=== PATIENT | female | born 1960 | race Caucasian/White ===

== ENCOUNTER 2017-06-17 16:16 | Emergency (ER) | payer MEDICAID ==
[~2017-06-17] VITALS: Wt 56.0 kg
--- NOTE | 2017-06-17 17:45 | RADRPT ---
PROCEDURE: Ultrasound abdomen limited CLINICAL INDICATION: 57-year-old female Trauma, evaluate for free fluid. TECHNIQUE: A limited ultrasound of the abdomen was performed utilizing amador scale imaging. COMPARISON: None. FINDINGS: No free fluid is identified in all four abdominal quadrants. IMPRESSION: Negative for evidence of intra-abdominal free fluid. RPTAT: HCTS Physician Estuardo Date Time Electronically viewed and signed by Erica Herrera Physician on 06/17/2017 17:45 CS/
--- NOTE | 2017-06-17 17:55 | RADRPT ---
PROCEDURE: Portable chest x-ray. CLINICAL INDICATION: 57-year-old female trauma. Chest pain. TECHNIQUE: Portable AP view of the chest. COMPARISON: None FINDINGS: Aortic contour is normal. Cardiomediastinal contours are normal. Mild right lung base atelectasis. Otherwise clear. Small right pleural effusion. Negative for evidence of pneumothorax. There are acute mildly displaced fractures of the lateral left third and fourth ribs with a subpleur al hematoma. There is mild widening of the left paravertebral stripe at T10 may indicate a paravert ebral hematoma. The negative for height loss in the adjacent vertebra. IMPRESSION: Acute mildly displaced fractures of the lateral left third and fourth ribs with a subpleural hematom a. Negative for evidence of a pneumothorax. Small right pleural effusion. Widened left paravertebral stripe at T10 is concerning for a paravertebral hematoma that may be seco ndary evidence of a thoracic spine fracture. Recommend dedicated imaging of the thoracic spine with CT or x-ray depending on clinical index of suspicion and prior imaging. Critical results were discussed with Dr. Sussy CARDENAS by Dr. Lucita Herrera on June 17, 2017 at 5: 45 PM. She indicates the patient had outside imaging at [facility] immediately following the trauma that is not available at the time of dictation. RPTAT: HCTS Physician Estuardo Date Time Electronically viewed and signed by Physician Estuardo on 06/17/2017 17:54 /
[2017-06-17 19:14] LABS: BASOPHILS % 0.3 % (0.0-2.0); EOSINOPHILS # 0.1 10^3/ul (0.0-0.5); EOSINOPHILS % 1.3 % (0.0-7.0); HEMATOCRIT 47.2 % (37.0-47.0); HEMOGLOBIN 15.3 g/dl (12.0-16.0); LYMPHOCYTES # 1.9 10^3/ul (0.8-2.9); LYMPHOCYTES % 20.1 % (15.0-51.0); MEAN CORPUSCULAR HEMOGLOBIN 29.3 pg (29.0-33.0); MEAN CORPUSCULAR HGB CONC 32.4 g/dl (32.0-37.0); MEAN CORPUSCULAR VOLUME 90.2 fl (82.0-101.0); MEAN PLATELET VOLUME 11.5 fl (7.4-10.4); MONOCYTE # 0.8 10^3/ul (0.3-0.9); MONOCYTES % 7.9 % (0.0-11.0); NEUTROPHIL # 6.7 10^3/ul (1.6-7.5); NEUTROPHILS % 70.2 % (39.0-77.0); PLATELET COUNT 245 10^3/UL (140-415); RED BLOOD COUNT 5.23 10^6/ul (4.20-5.40); RED CELL DISTRIBUTION WIDTH 12.9 % (11.5-14.5); WHITE BLOOD COUNT 9.5 10^3/ul (4.8-10.8)
[2017-06-17 19:18] LABS: ADD UMIC NO; UR ASCORBIC ACID NEGATIVE (NEGATIVE); UR BILIRUBIN (Dip) NEGATIVE (NEGATIVE); UR BLOOD (Dip) NEGATIVE (NEGATIVE); UR CLARITY CLEAR (CLEAR); UR COLOR YELLOW (YELLOW); UR GLUCOSE (Dip) NEGATIVE (NEGATIVE); UR KETONES (Dip) NEGATIVE (NEGATIVE); UR LEUKOCYTE ESTERASE (Dip) NEGATIVE Leu/ul (NEGATIVE); UR NITRITE (Dip) NEGATIVE (NEGATIVE); UR SPECIFIC GRAVITY (Dip) 1.012 (1.003-1.030); UR TOTAL PROTEIN (Dip) NEGATIVE (NEGATIVE); UR UROBILINOGEN (Dip) NEGATIVE (NEGATIVE)
[2017-06-17] MEDS ORDERED: morphine 4 MG/ML VIAL IV STA (19:21)
[2017-06-17 19:30] LABS: INR 0.89; PT RATIO 0.9
[2017-06-17 19:31] LABS: PARTIAL THROMBOPLASTIN TIME 27.1 Sec (25.0-35.0)
[2017-06-17 19:32] LABS: ALBUMIN 5.1 g/dl (3.3-4.9); BILIRUBIN,INDIRECT 0.6 mg/dl (0-1.1); BILIRUBIN,TOTAL 0.6 mg/dl (0.2-1.3); CALCIUM 10.5 mg/dl (8.4-10.2); CREATININE 0.84 mg/dl (0.44-1.00); POTASSIUM 4.6 mmol/L (3.5-5.1); TOTAL PROTEIN 9.4 g/dl (6.1-8.1)
[2017-06-17] MEDS ORDERED: DIPHENHYDRAMINE 50 MG INJ IV ONE (20:00)
[2017-06-17] MEDS ORDERED: IOHEXOL 300MG/ML 150 ML BTL ONE (20:07)
[2017-06-17] MEDS ORDERED: SOD CHLORIDE 0.9% 100 ML ONE (20:07)
--- NOTE | 2017-06-17 20:51 | RADRPT ---
PROCEDURE: CT thoracic spine without contrast CLINICAL INDICATION: Trauma. Pain. TECHNIQUE: CT scan of the thoracic spine was performed a multidetector scanner. No IV contrast wa s administered. Coronal and sagittal reformatted images were obtained from the axial source images. Exam CTDlvol = 12 mGy and DLP = 418 mGy-cm. One of the following 3 dose reduction techniques wer e used: Automated exposure control; adjustment of the mA and/or kV according to patient size; or use of iterative reconstruction technique. COMPARISON: None available FINDINGS: Alignment remains intact. There is no spondylolithesis. No acute fracture is seen. There is maint enance of height of the vertebral bodies. There is a calcified posterior disk osteophyte at T6-7 wi th effacement of the ventral aspect of the spinal canal.. Paravertebral soft tissues are unremarkab le. IMPRESSION: 1. No acute post-traumatic abnormality. 2. Mild degenerative changes at T6-7 disk space with a calcified posterior disk osteophyte. RPTAT: HMVK .Star Bergeron MD, Date Time Electronically viewed and signed by .Star Bergeron MD, on 06/17/2017 20:51 .K/
--- NOTE | 2017-06-17 20:57 | RADRPT ---
PROCEDURE: CT chest/abdomen/pelvis with contrast. CLINICAL INDICATION: Trauma TECHNIQUE: CT of the chest/abdomen/pelvis was performed utilizing axial images with reconstruction s in sagittal and coronal planes following the intravenous administration of 100 cc Isovue 300 contr ast. The administered radiation dose is CTDI 7.8 mGy, DLP 548 mGy-cm. COMPARISON: No pertinent prior examinations are submitted for comparison. FINDINGS: Chest: Some minimal opacities are noted within the subpleural upper lobes, likely minimal pulmonary contusi ons. There is no evidence of pneumothorax. There is trace left pleural effusion with some associat ed minimal atelectasis. Some minimal right lower lobe atelectasis is also present. The tracheobronc hial tree is unremarkable. The heart is normal in size. There is no evidence of pericardial effusion. There is no mediastinal or hilar adenopathy. There is no evidence of mediastinal hemorrhage. The great vessels are intact . Abdomen: The liver, spleen, pancreas, gallbladder, kidneys and adrenal glands are unremarkable. There is no abnormal distension or thickening of the bowel. The appendix is not seen. There is no evidence of acute appendicitis. There is no intra-abdominal free air. No mesenteric or retroperitoneal hemorrhage is identified. There is no intra-abdominal adenopathy o f free fluid. Pelvis: There is no evidence of pelvic adenopathy. The uterus and ovaries are without enlargement. The uri nary bladder is unremarkable. There is no pelvic free fluid. Some mild subcutaneous soft tissue injury is noted in the left buttocks. No measurable hematoma is s een. Osseous structures: There is an acute fracture within the anterior left second rib with mild displac ement. Acute, mildly displaced fractures are also noted in the posterolateral 3rd and 4th ribs. Th e thoracic and lumbar spine are intact. IMPRESSION: Minimal soft tissue injury in the left buttocks. Fractures of the left second through fourth ribs. Likely minimal pulmonary contusions within the upper lobes. Trace left pleural fluid which could represent a small amount of hemothorax. No definite pneumothor ax is identified. RPTAT: HIKT .Sawyer Andrade MD, MD Date Time Electronically viewed and signed by .Sawyer Andrade MD, MD on 06/17/2017 20:56 .T/
--- NOTE | 2017-06-17 21:07 | RADRPT ---
PROCEDURE: CT Chest, Abdomen and Pelvis with IV contrast. CLINICAL INDICATION: Trauma. Pain. TECHNIQUE: CT scan of the chest, abdomen and pelvis with contrast was performed on a multidetector CT scanner. The patient was scanned following the uncomplicated administration of 100 cc Omnipaq ue-300 intravenous contrast material. Coronal and sagittal reformatted images were obtained from th e axial source images. Images were reviewed on a high-resolution PACS workstation. Exam CTDlvol = 7.8 mGy and DLP = 548 mGy-cm. One of the following 3 dose reduction techniques were used: Automated exposure control; adjustment of the mA and/or kV according to patient size; or use of iterative rec onstruction technique. COMPARISON: Chest x-ray 06/17/2017 FINDINGS: CT Chest: There is acute fracture of the anterior left second and lateral left third and fourth ribs with asso ciated surrounding localized hemorrhage. Heart is normal in size. There is no pericardial fluid or effusion. Pulmonary arteries are unremar kable. The thoracic aorta is normal caliber without aneurysm or dissection. There is no mediastina l or hilar lymphadenopathy or mass. Thyroid gland is heterogeneous although normal in size. There i s probable 4 mm cyst in the left lobe. There is a small amount of left pleural fluid. Mild bibasilar atelectasis. There is no pneumothora x. CT abdomen/pelvis: The liver is overall normal in size. Liver is mildly hypodense/fatty. No intrahepatic lesions are identified. The gallbladder is normal in appearance. There is no definite biliary ductal dilation. Pancreas is normal in appearance. The spleen is unremarkable.. There are no adrenal masses. The ao rta is normal in caliber. There is no aortic aneurysm or dissection. . Kidneys are normal in appearance without hydronephrosis, mass or calculus. Ureters are of normal ca liber. Urinary bladder is partially contracted.. Uterus is unremarkable. Ovaries are not distinctly visualized. There is no obstruction or ileus. The appendix is not identified.. There are few scattered colonic diverticuli without evidence for diverticulitis. There is no free fluid. There are degenerate changes of the lower lumbar spine.. No fracture is identified. IMPRESSION: 1. Acute fractures of the anterior aspect of the left second and lateral aspect left third and four th ribs. No associated pneumothorax. 2. Small amount of left pleural fluid. 3. Mild bilateral dependent atelectasis. 4. Inhomogeneous thyroid gland with overall normal size. Probable small cyst left lobe. Correlati on with ultrasound is recommended and a non emergent setting. 5. Fatty liver. 6. Few scattered colonic diverticuli without evidence for diverticulitis. RPTAT: HMVK .Star Bergeron MD, Date Time Electronically viewed and signed by .Star Bergeron MD, on 06/17/2017 21:07 .K/
[2017-06-17] MEDS ORDERED: HYDR-906 PO ×2 (21:53→21:57)
[2017-06-17 22:30] VITALS: BP 118/62; PULSE 84; RESP 16
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
== END 2017-06-17 22:31 | disposition home or self-care (01) ==
LOC: FTE 16:16
DX: S29.001A Unspecified injury of muscle and tendon of front wall of thorax, initial encounter (principal); R07.9 Chest pain, unspecified; V49.40XA Driver injured in collision with unspecified motor vehicles in traffic accident, initial encounter
CPT/HCPCS: 71010; 71260; 72128; 74177; 76705; 80048; 80076; 81003; 84484; 85025; 85610; 85730; 93005; 96374; 96375; J1200; J2270; Q9967; Z7502; Z7610